=== PATIENT | female | born 1950 | race Caucasian/White ===

== ENCOUNTER 2022-01-14 17:40 | Inpatient (IN) | payer MEDICAID, MEDICARE, OTHER ==
[2022-01-14] MEDS ORDERED: Acetaminophen 325 MG Suppository PR PRN (17:53)
[2022-01-14] MEDS ORDERED: Electrolyte Replacement Protocol IVPB PRN (17:53)
[2022-01-14] MEDS ORDERED: Ondansetron PF 4 MG/2 ML Vial IVP PRN (17:53)
[2022-01-14] MEDS ORDERED: Calcium Carbonate 500 MG ChewTAB PO PRN (17:58)
[2022-01-14] MEDS ORDERED: Nicotine 14 MG PATCH TD PRN (18:01)
[2022-01-14] MEDS ORDERED: hydrALAZINE 20 MG/ML VIAL SLOW IVP PRN (18:01)
[2022-01-14] MEDS ORDERED: Budesonide 0.5 MG/2 ML NEB INH SCH (18:30)
[2022-01-14] MEDS ORDERED: Acetaminophen 650 MG/20.3 ML UDCUP PO PRN (18:34)
[2022-01-14] MEDS ORDERED: Potassium Chloride 20 MEQ TAB PO SCH (20:00)
[2022-01-14] MEDS: Cefepime 2 GM in Sodium Chloride 0.9% 100 ML IVPB SCH (20:56)
[2022-01-14] MEDS: Atorvastatin Calcium 10 MG TAB PO SCH (20:57)
[2022-01-14] MEDS: guaiFENesin ER 600 MG TAB PO SCH (20:57)
[2022-01-14] MEDS: Gabapentin 400 MG CAP PO SCH (20:57)
[2022-01-14] MEDS: Temazepam 15 MG CAP PO PRN (20:57)
[2022-01-14] MEDS: Senokot S 8.6-50 MG TAB PO SCH (21:00)
[2022-01-14] MEDS: Acetaminophen 325 MG TAB PO PRN (21:24)
[2022-01-14 22:20] LABS: Legionella Urinary Ag Negative (Negative); Strep pneumo Urine Ag NEGATIVE (NEGATIVE)
[2022-01-15 06:06] LABS: #Eosinphils 0.1 10x3/uL (0.0-0.5); #Monocytes 0.4 10x3/uL (0.0-1.1); %Basophils 0.5 % (0.0-2.0); %Lymphocytes 13.5 % (18.0-47.0); %Neutrophils 79.3 % (40.0-75.0); Hemoglobin 12.4 g/dL (12.0-15.5); Mean Corpuscular Hemoglobin 30.2 pg (27.0-33.0); Mean Corpuscular Volume 94.6 fl (81.6-98.3); Mean Platelet Volume 11.5 fl (7.4-10.4); Platelet Count 156 10x3/uL (150-450); RBC Distribution Width 16.7 % (11.5-14.5); White Blood Cell (WBC) Count 8.8 10x3/uL (3.5-10.5)
[2022-01-15 06:37] LABS: Phosphorus 3.6 mg/dL (2.3-4.7)
[2022-01-15 06:39] LABS: ALT (SGPT) 88 U/L (8-55); AST (SGOT) 43 U/L (5-34); Alkaline Phosphatase 117 U/L (40-110); Anion Gap 14 mmol/L (10-20); BUN (Urea Nitrogen) 15 mg/dL (9.8-20.1); Bilirubin, Total 0.8 mg/dL (0.2-1.2); Calc. Creatinine Clearance 122 mL/min (70-130); Calcium 9.1 mg/dL (7.8-10.44); Carbon Dioxide 32 mmol/L (23-31); Chloride 100 mmol/L (98-107); Estimated GFR 85; Glucose 123 mg/dL (80-115); Magnesium 2.3 mg/dL (1.6-2.6); Potassium 3.6 mmol/L (3.5-5.1); Sodium 142 mmol/L (136-145)
[2022-01-15] MEDS: Mometasone/Formoterol 200/5 60 PUFF INH SCH ×2 (07:00→19:15)
[2022-01-15 07:08] LABS: CRP (Inflammatory) 20.88 mg/dL (= or < 0.5)
[2022-01-15] MEDS ORDERED: VANCOMYCIN 2 GRAM/400 ML BAG 2 GM in Premix Bag 1 BAG IVPB SCH (08:00)
[2022-01-15] MEDS: Cefepime 2 GM in Sodium Chloride 0.9% 100 ML IVPB SCH ×2 (08:24→20:03)
[2022-01-15] MEDS: Gabapentin 400 MG CAP PO SCH ×3 (08:25→20:03)
[2022-01-15] MEDS: Saccharomyces boulardii 250 MG CAP PO SCH (08:25)
[2022-01-15] MEDS: guaiFENesin ER 600 MG TAB PO SCH ×2 (08:25→20:03)
[2022-01-15] MEDS: Bumetanide 1 MG TAB PO SCH (08:25)
[2022-01-15] MEDS: Spironolactone 25 MG TAB PO SCH (08:25)
[2022-01-15] MEDS: Multivit, Therapeutic 1 TAB PO SCH (08:25)
[2022-01-15] MEDS: Aspirin 81 mg Enteric Coated Tablet PO SCH (08:25)
[2022-01-15] MEDS: Senokot S 8.6-50 MG TAB PO SCH ×2 (08:25→20:04)
[2022-01-15 08:28] LABS: Actual Bicarbonate (HCO3v) 31 mEq/L (22-28); Base Excess 4.6 mEq/L (-2.0 to +3.0); Calcium, Ionized (venous) 1.11 mmol/L (1.16-1.32); Chloride (VBG) 101 mmol/L (98-106); Hemoglobin (Hb) 13.5 g/dL (11.7-16.1); Potassium (VBG) 3.51 mmol/L (3.70-5.30); Puncture Site Other Site; RapidComm Collect By CBN; Sodium 137.1 mmol/L (133-146)
[2022-01-15] MEDS ORDERED: Enoxaparin Sodium 40 MG/0.4 ML SYRINGE SC SCH (09:00)
[2022-01-15] MEDS ORDERED: VANCOMYCIN 1.25 GM/250 ML BAG IVPB SCH (09:00)
[2022-01-15] MEDS ORDERED: Enoxaparin Sodium 60 MG/0.6 ML SYRINGE SC SCH (10:30)
[2022-01-15] MEDS: Acetaminophen 325 MG TAB PO PRN (15:04)
[2022-01-15] MEDS: Azithromycin 500 MG in Sodium Chloride 0.9% 250 ML 250 ML IVPB SCH (15:04)
[2022-01-15] MEDS: Atorvastatin Calcium 10 MG TAB PO SCH (20:03)
[2022-01-15] MEDS ORDERED: Senokot S 8.6-50 MG TAB ONE (20:05)
[2022-01-15] MEDS: Temazepam 15 MG CAP PO PRN (20:07)
[2022-01-16 04:10] VITALS: TEMP 98.5
[2022-01-16 04:25] LABS: #Eosinphils 0.3 10x3/uL (0.0-0.5); #Monocytes 0.4 10x3/uL (0.0-1.1); #Neutrophils 6.2 10x3/uL (1.5-8.4); %Basophils 0.3 % (0.0-2.0); %Eosinophils 3.5 % (0.0-6.0); %Lymphocytes 12.8 % (18.0-47.0); %Monocytes 4.9 % (0.0-10.0); %Neutrophils 77.7 % (40.0-75.0); Hemoglobin 12.4 g/dL (12.0-15.5); Mean Corpuscular HGB CONC 31.3 g/dL (32.0-36.0); Mean Corpuscular Hemoglobin 30.2 pg (27.0-33.0); Mean Corpuscular Volume 96.6 fl (81.6-98.3); Mean Platelet Volume 11.1 fl (7.4-10.4); Platelet Count 173 10x3/uL (150-450); RBC Distribution Width 16.7 % (11.5-14.5)
[2022-01-16 04:32] LABS: ALT (SGPT) 81 U/L (8-55); AST (SGOT) 37 U/L (5-34); Albumin 3.2 g/dL (3.4-4.8); Alkaline Phosphatase 119 U/L (40-110); Anion Gap 15 mmol/L (10-20); BUN (Urea Nitrogen) 15 mg/dL (9.8-20.1); Bilirubin, Total 0.7 mg/dL (0.2-1.2); Calc. Creatinine Clearance 111 mL/min (70-130); Calcium 9.1 mg/dL (7.8-10.44); Carbon Dioxide 33 mmol/L (23-31); Chloride 97 mmol/L (98-107); Estimated GFR 76; Globulin 3.3 g/dL (2.4-3.5); Glucose 110 mg/dL (80-115); Potassium 3.1 mmol/L (3.5-5.1); Protein, Total 6.5 g/dL (5.8-8.1); Sodium 142 mmol/L (136-145)
[2022-01-16] MEDS ORDERED: Potassium Chloride 20 MEQ TAB PO SCH ×2 (05:00→20:15)
[2022-01-16 06:55] VITALS: BMI 43.0
[2022-01-16] MEDS: Mometasone/Formoterol 200/5 60 PUFF INH SCH ×2 (07:30→18:51)
[2022-01-16] MEDS ORDERED: Vancomycin 1.5 GRAM/300 ML BAG 1.5 GM in Premix Bag 1 BAG IVPB SCH (08:00)
[2022-01-16] MEDS: Aspirin 81 mg Enteric Coated Tablet PO SCH (08:06)
[2022-01-16] MEDS: guaiFENesin ER 600 MG TAB PO SCH ×2 (08:06→20:29)
[2022-01-16] MEDS: Saccharomyces boulardii 250 MG CAP PO SCH (08:06)
[2022-01-16] MEDS: Senokot S 8.6-50 MG TAB PO SCH ×2 (08:07→20:30)
[2022-01-16] MEDS: Gabapentin 400 MG CAP PO SCH ×3 (08:07→20:29)
[2022-01-16] MEDS: Enoxaparin Sodium 60 MG/0.6 ML SYRINGE SC SCH (08:07)
[2022-01-16] MEDS: Bumetanide 1 MG TAB PO SCH (08:07)
[2022-01-16] MEDS: Cefepime 2 GM in Sodium Chloride 0.9% 100 ML IVPB SCH ×2 (08:08→20:28)
[2022-01-16] MEDS: Multivit, Therapeutic 1 TAB PO SCH (08:09)
[2022-01-16] MEDS: Spironolactone 25 MG TAB PO SCH (08:09)
[2022-01-16] MEDS: Acetaminophen 325 MG TAB PO PRN (10:02)
[2022-01-16] MEDS: Azithromycin 500 MG in Sodium Chloride 0.9% 250 ML 250 ML IVPB SCH (15:43)
[2022-01-16] MEDS: Atorvastatin Calcium 10 MG TAB PO SCH (20:29)
[2022-01-17 04:24] LABS: #Eosinphils 0.2 10x3/uL (0.0-0.5); #Monocytes 0.5 10x3/uL (0.0-1.1); #Neutrophils 5.2 10x3/uL (1.5-8.4); %Basophils 0.6 % (0.0-2.0); %Eosinophils 3.1 % (0.0-6.0); %Lymphocytes 17.2 % (18.0-47.0); %Monocytes 6.3 % (0.0-10.0); %Neutrophils 72.1 % (40.0-75.0); Hemoglobin 12.5 g/dL (12.0-15.5); Mean Corpuscular HGB CONC 31.1 g/dL (32.0-36.0); Mean Corpuscular Hemoglobin 30.3 pg (27.0-33.0); Mean Corpuscular Volume 97.3 fl (81.6-98.3); Mean Platelet Volume 10.8 fl (7.4-10.4); Platelet Count 179 10x3/uL (150-450); RBC Distribution Width 16.5 % (11.5-14.5); Red Blood Cell (RBC) Count 4.13 10x6/uL (3.90-5.03); White Blood Cell (WBC) Count 7.2 10x3/uL (3.5-10.5)
[2022-01-17 04:35] LABS: Anion Gap 16 mmol/L (10-20); BUN (Urea Nitrogen) 15 mg/dL (9.8-20.1); Calc. Creatinine Clearance 117 mL/min (70-130); Carbon Dioxide 34 mmol/L (23-31); Chloride 97 mmol/L (98-107); Estimated GFR 81; Glucose 108 mg/dL (80-115); Sodium 143 mmol/L (136-145)
[2022-01-17] MEDS: Saccharomyces boulardii 250 MG CAP PO SCH (07:46)
[2022-01-17] MEDS: Multivit, Therapeutic 1 TAB PO SCH (07:46)
[2022-01-17] MEDS: Enoxaparin Sodium 60 MG/0.6 ML SYRINGE SC SCH (07:46)
[2022-01-17] MEDS: Cefepime 2 GM in Sodium Chloride 0.9% 100 ML IVPB SCH ×2 (07:46→20:36)
[2022-01-17] MEDS: guaiFENesin ER 600 MG TAB PO SCH ×2 (07:47→20:36)
[2022-01-17] MEDS: Gabapentin 400 MG CAP PO SCH ×3 (07:47→20:37)
[2022-01-17] MEDS: Aspirin 81 mg Enteric Coated Tablet PO SCH (07:47)
[2022-01-17] MEDS: Spironolactone 25 MG TAB PO SCH (07:47)
[2022-01-17] MEDS: Acetaminophen 325 MG TAB PO PRN (07:47)
[2022-01-17] MEDS: Senokot S 8.6-50 MG TAB PO SCH ×2 (07:48→20:37)
[2022-01-17] MEDS: Bumetanide 1 MG TAB PO SCH (07:48)
[2022-01-17] MEDS: Mometasone/Formoterol 200/5 60 PUFF INH SCH ×2 (08:27→19:03)
[2022-01-17] MEDS: Azithromycin 500 MG in Sodium Chloride 0.9% 250 ML 250 ML IVPB SCH (14:58)
[2022-01-17] MEDS: Atorvastatin Calcium 10 MG TAB PO SCH (20:37)
[2022-01-17] MEDS: Temazepam 15 MG CAP PO PRN (20:48)
[2022-01-18 04:24] LABS: BUN (Urea Nitrogen) 15 mg/dL (9.8-20.1); Calc. Creatinine Clearance 121 mL/min (70-130); Calcium 9.3 mg/dL (7.8-10.44); Estimated GFR 85; Glucose 117 mg/dL (80-115)
[2022-01-18 04:27] LABS: #Eosinphils 0.2 10x3/uL (0.0-0.5); #Monocytes 0.5 10x3/uL (0.0-1.1); #Neutrophils 4.4 10x3/uL (1.5-8.4); %Basophils 0.5 % (0.0-2.0); %Eosinophils 3.4 % (0.0-6.0); %Lymphocytes 20.6 % (18.0-47.0); %Monocytes 7.7 % (0.0-10.0); %Neutrophils 67.2 % (40.0-75.0); Hemoglobin 12.1 g/dL (12.0-15.5); Mean Corpuscular HGB CONC 31.2 g/dL (32.0-36.0); Mean Corpuscular Hemoglobin 30.3 pg (27.0-33.0); Mean Corpuscular Volume 97.2 fl (81.6-98.3); Mean Platelet Volume 10.8 fl (7.4-10.4); Platelet Count 173 10x3/uL (150-450); RBC Distribution Width 16.2 % (11.5-14.5); Red Blood Cell (RBC) Count 3.99 10x6/uL (3.90-5.03); White Blood Cell (WBC) Count 6.5 10x3/uL (3.5-10.5)
[2022-01-18 04:32] LABS: Anion Gap 15 mmol/L (10-20); Carbon Dioxide 37 mmol/L (23-31); Chloride 96 mmol/L (98-107); Potassium 3.3 mmol/L (3.5-5.1); Sodium 145 mmol/L (136-145)
[2022-01-18] MEDS ORDERED: Potassium Chloride 20 MEQ TAB PO SCH ×3 (05:45→08:00)
[2022-01-18] MEDS: Mometasone/Formoterol 200/5 60 PUFF INH SCH (06:52)
[2022-01-18] MEDS: Cefepime 2 GM in Sodium Chloride 0.9% 100 ML IVPB SCH (07:46)
[2022-01-18] MEDS: Saccharomyces boulardii 250 MG CAP PO SCH (07:47)
[2022-01-18] MEDS: Gabapentin 400 MG CAP PO SCH ×2 (07:47→16:00)
[2022-01-18] MEDS: Enoxaparin Sodium 60 MG/0.6 ML SYRINGE SC SCH (07:47)
[2022-01-18] MEDS: Spironolactone 25 MG TAB PO SCH (07:48)
[2022-01-18] MEDS: guaiFENesin ER 600 MG TAB PO SCH (07:48)
[2022-01-18] MEDS: Senokot S 8.6-50 MG TAB PO SCH (07:48)
[2022-01-18] MEDS: Multivit, Therapeutic 1 TAB PO SCH (07:48)
[2022-01-18] MEDS: Bumetanide 1 MG TAB PO SCH (07:48)
[2022-01-18] MEDS: Aspirin 81 mg Enteric Coated Tablet PO SCH (07:48)
[2022-01-18 10:40] VITALS: BP 121/63
[2022-01-18] MEDS: Azithromycin 500 MG in Sodium Chloride 0.9% 250 ML 250 ML IVPB SCH (16:00)
== END 2022-01-18 17:15 | disposition home or self-care (01) | DRG 871 ==
LOC: CSHIMCU 17:40
PROVIDERS: ADMIT Internal Medicine; ATTEND Internal Medicine
PROC: 3E03329 Introduction of Other Anti-infective into Peripheral Vein, Percutaneous Approach (ICD-10-PCS; principal; 2022-01-14)
PROC: 5A09457 Assistance with Respiratory Ventilation, 24-96 Consecutive Hours, Continuous Positive Airway Pressure (ICD-10-PCS; 2022-01-15)
DX: A41.9 Sepsis, unspecified organism (principal); J18.9 Pneumonia, unspecified organism; J96.01 Acute respiratory failure with hypoxia; J44.1 Chronic obstructive pulmonary disease with (acute) exacerbation; J44.0 Chronic obstructive pulmonary disease with (acute) lower respiratory infection; I50.32 Chronic diastolic (congestive) heart failure; I13.0 Hypertensive heart and chronic kidney disease with heart failure and stage 1 through stage 4 chronic kidney disease, or unspecified chronic kidney disease; R65.20 Severe sepsis without septic shock; Z20.822 Contact with and (suspected) exposure to COVID-19; E78.5 Hyperlipidemia, unspecified; E11.22 Type 2 diabetes mellitus with diabetic chronic kidney disease; N18.2 Chronic kidney disease, stage 2 (mild); E87.6 Hypokalemia; F41.9 Anxiety disorder, unspecified; G89.4 Chronic pain syndrome; E27.8 Other specified disorders of adrenal gland; M32.9 Systemic lupus erythematosus, unspecified; R53.81 Other malaise; F17.210 Nicotine dependence, cigarettes, uncomplicated; K76.0 Fatty (change of) liver, not elsewhere classified; Z79.82 Long term (current) use of aspirin; Z79.899 Other long term (current) drug therapy; Z79.84 Long term (current) use of oral hypoglycemic drugs; Z98.51 Tubal ligation status; Z71.6 Tobacco abuse counseling
CPT/HCPCS: 36415; 80048; 80053; 82805; 83735; 84100; 84145; 85025; 86140; 87070; 87081; 87205; 87449; 87899; 94640; 94660; 94664; 94760; J0456; J0692; J1650; J2405; J3370; J3490; J7050; J7620